=== PATIENT | male | born 1950 | race Caucasian/White ===

== ENCOUNTER 2023-02-28 09:14 | Outpatient (REF) | payer MEDICARE, OTHER, SELFPAY ==
--- NOTE | ~2023-02-28 | XR_ITS ---
EXAMINATION: XR LUMBOSACRAL SPINE WITH OBLIQUES CLINICAL INFORMATION: Low back pain and sciatica COMPARISON: None available. TECHNIQUE: 4 views of the lumbar spine including flexion-extension views FINDINGS: There is posterior fusion hardware with interpedicular screws and rods at L3-L4 and intervertebral disc interspace. There is evidence of previous disc surgery at L4-L5. Surgical hardware appears intact. No stability on flexion extension views. No fracture or dislocation. Lower lumbar spine facet arthritis. Atherosclerotic disease. XR/XR lumbar spine 4V min IMPRESSION: Postoperative change at L3-L4 and L4-L5. No instability on flexion-extension views.
== END 2023-02-28 09:15 | disposition home or self-care (01) ==
LOC: HO.HOSX 09:14
PROVIDERS: PCP Physician Assistant Medical; Visit Provider Physician Assistant
DX: M54.40 Lumbago with sciatica, unspecified side (principal)
CPT/HCPCS: 72110; 99212; Q3014

== ENCOUNTER 2024-04-22 09:51 | Outpatient (AMB) | payer MEDICARE, OTHER, SELFPAY ==
--- NOTE | 2024-04-22 10:02 | HO.SPINEOV ---
Intake Visit Reasons: R side back and leg pain & numbness Intake Note: Mr. Steward is here today for right sided back and leg pain with numbness. 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 As you know, he underwent an L4-5 lumbar fusion and additionally an L3-4 fusion from which she recovered well. Approximately 3 weeks ago he developed pain down his right leg. Specifically, it goes into his groin and then down to his right lower leg. Recently, he also developed numbness. The pain is constantly present but gets worse when he stands up. Dynamic x-rays show no instability. A repeat MRI shows no significant changes from prior MRI of 2022. The only thing I see is [id number] right L4 foraminal stenosis. The patient is currently taking gabapentin and I told him not to go higher than 900 mg a day. Most likely, the symptoms will resolve over time. I advised him to call my office in 3 weeks if there is no improvement. We will then refer him for a right L4 diagnostic block to Dr. Willams. Thank you for allowing me take care of your patient. Stephen Randall MD, PhD [facility] Trained Neurosurgeon Director, [facility] Coding Level of Care Code Est Pt Level 2 (82058) Diagnoses Back pain of lumbar region with sciatica M54.40
== END 2024-04-22 10:37 | disposition home or self-care (01) ==
PROVIDERS: PCP Physician Assistant Medical; Visit Provider Neurological Surgery
DX: M54.40 Lumbago with sciatica, unspecified side (principal)
CPT/HCPCS: 99212

== ENCOUNTER → 2024-04-22 09:51 | Outpatient (BNVA) | payer MEDICARE, OTHER, SELFPAY | PROVIDERS: PCP Physician Assistant Medical; Visit Provider Neurological Surgery | DX: M54.40 Lumbago with sciatica, unspecified side (principal) | CPT/HCPCS: 99212 ==

== ENCOUNTER → 2025-04-07 15:09 | Outpatient (BNVA) | payer MEDICARE, OTHER, SELFPAY | PROVIDERS: PCP Physician Assistant Medical; Visit Provider Neurological Surgery | DX: M54.40 Lumbago with sciatica, unspecified side (principal) | CPT/HCPCS: 99212 ==